=== PATIENT | female | born 2000 | race Caucasian/White ===

== ENCOUNTER 2021-12-05 20:34 | Emergency (ER) | payer SELFPAY ==
[~2021-12-05] VITALS: Ht 160 cm; Wt 65.8 kg
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
--- NOTE | 2021-12-05 21:32 | RAD ---
Exam: CT of abdomen and pelvis without contrast INDICATION: Flank pain TECHNIQUE: Sequential axial images through the abdomen and pelvis obtained without IV contrast. Sagit kaylin and coronal reformatted images were reconstructed from the axial data and reviewed. Exposure: One or more of the following in the visualized dose reduction techniques were utilized for this examination: 1. Automated exposure control 2. Adjustment of the MA and/or KV according to patient size 3. Use of iterative of reconstructive technique Comparisons: None FINDINGS: Heart size is normal. No pericardial effusion. Visualized lung bases are clear. No pleural effusion. Liver, spleen, pancreas, gallbladder and adrenals are unremarkable. No perinephric inflammation or hydronephrosis. No renal or ureteral calculi are identified. Bladder is decompressed not well evaluated. Uterus is nonenlarged. No abnormal adnexal mass. Moderate amount of stool is noted in the colon. Appendix is normal. Small bowel is unremarkable. No f ree intra-abdominal air or fluid. No obstruction. Abdominal aorta has normal course and caliber. No enlarged abdominal lymph nodes are identified. No suspicious osseous lesions or acute fractures. IMPRESSION: 1. Small amount of free fluid in the pelvis which is nonspecific and may be physiologic. 2. Cystic lesion at the adnexa bilaterally greater on the right measuring up to 3 cm favored represe nt cyst within the right ovary however incompletely characterized on ultrasound. 3. No renal or ureteral calculi are identified. Electronically signed by: Roberta Blank MD (12/05/2021 9:30 PM) [facility]
[2021-12-05] MEDS ORDERED: HYDROcodone/APAP 5/325MG 1 TAB TABLET PO ONE (21:45)
[2021-12-05 22:03] LABS: BACTERIA,URINE FEW /HPF (0-FEW); CLARITY,URINE CLEAR; COLOR,URINE YELLOW; GLUCOSE,URINE NEG (NEG); NITRITE,URINE NEG (NEG); RBC,URINE OCC /HPF (0-2); SQUAMOUS EPITHELIAL CELL,UR MOD /LPF; UROBILINOGEN,URINE 0.2 mg/dL (0.2 mg/dL)
[2021-12-05] MEDS ORDERED: HYDR-2759 PO (22:08)
[2021-12-05 22:20] VITALS: BP 119/66
== END 2021-12-05 22:22 | disposition home or self-care (01) ==
LOC: ER 20:34
DX: N83.209 Unspecified ovarian cyst, unspecified side (principal)
CPT/HCPCS: 74176; 81001; 99284